=== PATIENT | female | born 1995 | race Caucasian/White ===

== ENCOUNTER 2019-10-18 16:57 | Outpatient (CLI) | payer OTHER, MEDICAID, SELFPAY ==
--- NOTE | 2019-10-18 17:34 | PM.OBTRLD ---
Visit Information Visit Information Date of evaluation: 10/18/19 On-call OB Provider: Jagruti Pérez Reason for Evaluation: Yes other Comments/Additional reasons for admission: Patient has been monitoring blood pressures at home and got a blood pressure of 180 over 90 so presented for evaluation. Vital Signs Vital Signs: Blood pressure 155/83, pulse of 98, temperature 36.6? Review of Systems Review of Systems Narrative: No headaches, scotomata, epigastric pain. Good movement. No leakage of fluid. No bleeding. No fevers. No abdominal pain. Exam Vital Signs (past 8 hours): Blood pressure 155/83, pulse of 98, temperature 36.6? Narrative Exam Narrative: Abdomen is soft, nontender. Extremities without edema and nontender Evaluation Evaluation Baseline heart rate: 130 Variability: Average (6-10) monitor accelerations: Episodic monitor decelerations: Absent Contraction Frequency (minutes): 0 Diagnosis, Plan/Disposition Final Diagnosis (1) Hypertension affecting in second trimester: Current Visit: Yes Status: Acute (2) 23 weeks gestation of : Current Visit: Yes Status: Acute Plan/Disposition Plan: Patient with increasing blood pressures in . Came in for evaluation after abnormally high blood pressure. She is just visiting from out of town. No signs or symptoms of preeclampsia although too early related to be concerned about preeclampsia. Her blood pressures are not in the range that I feel that I need to start blood pressure medications now but encouraged patient to call her OB on Monday to discuss her blood pressures in whether she should be started on labetalol. OB Disposition: home
== END 2019-10-18 17:55 | disposition home or self-care (01) ==
LOC: LABOR 17:08 → OB 10-22 12:10
PROVIDERS: Visit Provider Specialist
DX: O13.2 Gestational [pregnancy-induced] hypertension without significant proteinuria, second trimester (principal); Z3A.23 23 weeks gestation of pregnancy
CPT/HCPCS: 59025; G0378; G0379